=== PATIENT | female | born 1960 | race Caucasian/White ===

== ENCOUNTER 2021-06-30 15:11 | Outpatient (REF) | payer BC, SELFPAY ==
[2021-06-30 15:32] LABS: MANUAL DIFF FLAG NO
[2021-06-30 15:42] LABS: Basophils Percent Auto 0.6 % (0-2); Eosinophils Absolute Auto 0.1 X10*3/uL (0.0-0.4); Eosinophils Percent Auto 1.8 % (0-4); Hematocrit 37.3 % (37-47); Hemoglobin 12.4 g/dl (12.0-16.0); Imm Gran Abs Auto 0.03 X10*3/uL (0.00-0.03); Imm Gran Pct Auto 0.4 % (0.0-0.4); Lymphocytes Absolute Auto 0.8 X10*3/uL (1.2-4.9); Lymphocytes Percent Auto 11.7 % (20-40); Mean Corpuscular HGB Conc 33.2 g/dl (31.0-35.0); Mean Corpuscular Hemoglobin 30.2 pg (27.0-33.0); Mean Corpuscular Volume 90.8 fL (80-98); Mean Platelet Volume 9.3 fL (9.4-12.3); Monocytes Absolute Auto 0.6 X10*3/uL (0.1-1.2); Monocytes Percent Auto 7.7 % (2-11); Neutrophils Absolute Auto 5.6 X10*3/uL (2.0-8.3); Neutrophils Percent Auto 77.8 % (45-73); Platelet Count 197 X10*3/uL (160-400); Red Blood Count 4.11 X10*6/uL (4.20-5.50); Red Cell Distribution Width 12.3 % (11.0-16.0); White Blood Count 7.2 X10*3/uL (4.8-10.8)
[2021-06-30 16:03] LABS: Alanine Aminotransferase 23 U/L (0-31); Albumin Level 4.2 g/dL (3.5-5.0); Alkaline Phosphatase 56 U/L (39-117); Anion Gap 11 (12-20); Aspartate Amino Transferase 33 U/L (5-31); Bilirubin Direct 0.2 mg/dL (0.0-0.5); Bilirubin Total 0.5 mg/dL (0.0-1.0); Blood Urea Nitrogen 10 mg/dL (9-16); C Reactive Protein 0.21 mg/dL (< or = 0.50); Calcium 9.6 mg/dL (8.4-10.2); Carbon Dioxide 29 mmol/L (22-29); Chloride 106 mmol/L (96-108); Estimated Glomerular Filt Rate > 60; Glucose Random 110 mg/dL (60-115); Potassium 3.9 mmol/L (3.3-5.1); Sodium 142 mmol/L (135-145)
[2021-06-30 16:23] LABS: Erythrocyte Sedimentation Rate 16 MM/HR (0-20)
== END 2021-06-30 15:12 | disposition home or self-care (01) ==
LOC: HO.LAB 15:11
PROVIDERS: PCP Internal Medicine; Visit Provider Internal Medicine
DX: R19.7 Diarrhea, unspecified (principal); R53.83 Other fatigue
CPT/HCPCS: 36415; 80048; 80076; 85025; 85652; 86140

== ENCOUNTER 2021-07-01 14:19 | Outpatient (REF) | payer BC, SELFPAY ==
[2021-07-01 15:00] LABS: Leukocytes Stool Qualitative NEGATIVE (NEGATIVE)
[2021-07-01 15:38] LABS: CDiff Gene PCR NEGATIVE (Negative)
== END 2021-07-01 14:20 | disposition home or self-care (01) ==
LOC: HO.LNP 14:19
PROVIDERS: Visit Provider Internal Medicine
DX: R19.7 Diarrhea, unspecified (principal); R53.83 Other fatigue
CPT/HCPCS: 87045; 87046; 87177; 87209; 87329; 87493; 89055

== ENCOUNTER 2021-11-10 15:54 | Outpatient (REF) | payer BC, SELFPAY ==
[2021-11-10 16:02] LABS: MANUAL DIFF FLAG NO
[2021-11-10 16:33] LABS: Basophils Percent Auto 0.6 % (0-2); Eosinophils Absolute Auto 0.1 X10*3/uL (0.0-0.4); Eosinophils Percent Auto 1.3 % (0-4); Hemoglobin 11.7 g/dl (12.0-16.0); Imm Gran Abs Auto 0.01 X10*3/uL (0.00-0.03); Imm Gran Pct Auto 0.2 % (0.0-0.4); Lymphocytes Percent Auto 17.8 % (20-40); Mean Corpuscular HGB Conc 32.5 g/dl (31.0-35.0); Mean Corpuscular Hemoglobin 30.7 pg (27.0-33.0); Mean Corpuscular Volume 94.5 fL (80.0-98.0); Mean Platelet Volume 9.6 fL (9.4-12.3); Monocytes Absolute Auto 0.4 X10*3/uL (0.1-1.2); Monocytes Percent Auto 7.2 % (2-11); Neutrophils Percent Auto 72.9 % (45-73); Platelet Count 180 X10*3/uL (160-400); Red Blood Count 3.81 X10*6/uL (4.20-5.50); Red Cell Distribution Width 12.4 % (11.0-16.0); White Blood Count 5.5 X10*3/uL (4.8-10.8)
[2021-11-10 16:45] LABS: Alanine Aminotransferase 28 U/L (0-31); Albumin Level 4.5 g/dL (3.5-5.0); Alkaline Phosphatase 58 U/L (39-117); Aspartate Amino Transferase 52 U/L (5-31); Bilirubin Direct 0.2 mg/dL (0.0-0.5); Bilirubin Total 0.6 mg/dL (0.0-1.0); C Reactive Protein 0.06 mg/dL (< or = 0.50); Total Protein 7.3 g/dL (6.5-8.0)
[2021-11-10 17:05] LABS: Erythrocyte Sedimentation Rate 8 MM/HR (0-20)
[2021-11-16 12:22] LABS: Antibody to SS-A Antigen <1.0 NEG AI (<1.0 NEG); Antibody to SS-B Antigen <1.0 NEG AI (<1.0 NEG)
== END 2021-11-10 15:55 | disposition home or self-care (01) ==
LOC: HO.LAB 15:54
PROVIDERS: Visit Provider Internal Medicine
DX: K50.10 Crohn's disease of large intestine without complications (principal); H04.123 Dry eye syndrome of bilateral lacrimal glands
CPT/HCPCS: 36415; 80076; 85025; 85652; 86140; 86235

== ENCOUNTER 2021-12-14 08:33 | Day surgery (SDC) | payer BC, SELFPAY ==
--- NOTE | 2021-12-13 09:00 | P.CONAN_ITS ---
Documented by User: Molly Mcdaniel NP 12/13/21 09:01 HPI - Anesthesia Eval Consult details Narrative: 61yo F for Upper Endoscopy and Colonoscopy PMFSH Past Medical History Medical History Bronchiectasis Crohn's colitis GERD (gastroesophageal reflux disease) History of Mohs micrographic surgery for skin cancer History of Sjogren's disease History of skin cancer Hypothyroidism Osteoporosis Surgical History Surgical History History of esophagogastroduodenoscopy (EGD) History of left oophorectomy Hx of colonoscopy Hx of cystoscopy Hx of foot surgery Hx of right knee surgery Social History Social History Patient Tobacco Use Status: Never used Tobacco Use of substances other than those prescribed or required for medical reasons: Yes Substance Use Frequency: Daily Are you DNR?: No Advance Directives: No Advance Directives Information Provided: Yes Meds Allergies Allergy/AdvReac Type Severity Reaction Status Date / Time ciprofloxacin [From CIPRO] Allergy Unknown NEUROPATHY Verified 12/14/21 09:13 moxifloxacin [From AVELOX] Allergy Unknown NEUROPATHY Verified 12/14/21 09:14 nitrofurantoin Allergy Unknown HIVES Verified 12/14/21 09:13 [From MACROBID] levofloxacin [From Levaquin] Allergy Unknown Verified 12/09/21 09:45 Home Medications Medication Instructions Recorded Confirmed Last Taken Type azithromycin 250 mg tablet mg PO 12/09/21 Unknown History cyanocobalamin (vitamin B-12) 1 ml IM QMONTH 12/09/21 12/09/21 Unknown History 1,000 mcg/mL injection solution fluticasone 500 mcg-salmeterol 50 1 puff PO BID 12/09/21 12/09/21 Unknown History mcg/dose blistr powdr for inhalation (Advair Diskus) folic acid 1 mg tablet 1 tab PO DAILY 12/09/21 12/09/21 Unknown History ipratropium 0.5 mg-albuterol 3 mg 1 vial INHALATION QID 12/09/21 12/09/21 Unk nown History (2.5 mg base)/3 mL nebulization soln levothyroxine 100 mcg tablet 1 tab PO 6XW 12/09/21 12/14/21 12/14/21 06:30 History (Synthroid) lifitegrast 5 % eye drops in a 1 drp OPHTHALMIC (EYE) BID 12/09/21 12/09/21 Unknown History dropperette (Xiidra) omeprazole 20 mg capsule,delayed 1 cap PO QAM 12/09/21 12/09/21 Unknown History release sodium chloride 3 % for ml INHALATION 12/09/21 Unknown History nebulization sulfasalazine 500 mg tablet 3 tab PO BID 12/09/21 12/09/21 Unknown History Exam Exam Date and Time: December 13, 2021 0900 Height,Weight and Vital Signs: Height 5 ft 8.25 in Weight 60.328 kg Pertinent Lab Results Pertinent Lab Results: Laboratory Tests 06/30/21 11/10/21 15:31 16:01 WBC 5.5 Hgb 11.7 L Hct 36.0 L Sodium 142 Potassium 3.9 Chloride 106 Carbon Dioxide 29 BUN 10 Creatinine 0.95 Assessment and Plan Assessment Anesthesia Assessment: Chart Reviewed Documented by User: Tiffany Wolff MD 12/14/21 10:05 [facility] Past Medical History Medical History Bronchiectasis Crohn's colitis GERD (gastroesophageal reflux disease) History of Mohs micrographic surgery for skin cancer History of Sjogren's disease History of skin cancer Hypothyroidism Osteoporosis Surgical History Surgical History History of esophagogastroduodenoscopy (EGD) History of left oophorectomy Hx of colonoscopy Hx of cystoscopy Hx of foot surgery Hx of right knee surgery History of Problems with Anesthesia: Yes (Aspiration twice in the past per pt) Social History Social History Patient Tobacco Use Status: Never used Tobacco Use of substances other than those prescribed or required for medical reasons: Yes Substance Use Frequency: Daily Are you DNR?: No Advance Directives: No Advance Directives Information Provided: Yes Meds Allergies Allergy/AdvReac Type Severity Reaction Status Date / Time ciprofloxacin [From CIPRO] Allergy Unknown NEUROPATHY Verified 12/14/21 09:13 moxifloxacin [From AVELOX] Allergy Unknown NEUROPATHY Verified 12/14/21 09:14 nitrofurantoin Allergy Unknown HIVES Verified 12/14/21 09:13 [From MACROBID] levofloxacin [From Levaquin] Allergy Unknown Verified 12/09/21 09:45 Home Medications Medication Instructions Recorded Confirmed Last Taken Type azithromycin 250 mg tablet mg PO 12/09/21 Unknown History cyanocobalamin (vitamin B-12) 1 ml IM QMONTH 12/09/21 12/09/21 Unknown History 1,000 mcg/mL injection solution fluticasone 500 mcg-salmeterol 50 1 puff PO BID 12/09/21 12/09/21 Unknown History mcg/dose blistr powdr for inhalation (Advair Diskus) folic acid 1 mg tablet 1 tab PO DAILY 12/09/21 12/09/21 Unknown History ipratropium 0.5 mg-albuterol 3 mg 1 vial INHALATION QID 12/09/21 12/09/21 Unknown History (2.5 mg base)/3 mL nebulization soln levothyroxine 100 mcg tablet 1 tab PO 6XW 12/09/21 12/14/21 12/14/21 06:30 History (Synthroid) lifitegrast 5 % eye drops in a 1 drp OPHTHALMIC (EYE) BID 12/09/21 12/09/21 Unknown History dropperette (Xiidra) omeprazole 20 mg capsule,delayed 1 cap PO QAM 12/09/21 12/09/21 Unknown History release sodium chloride 3 % for ml INHALATION 12/09/21 Unknown History nebulization sulfasalazine 500 mg tablet 3 tab PO BID 12/09/21 12/09/21 Unknown History Exam Airway Mallampati Class: II TM Dist: >3cm Neck ROM: Full Loose/Missing/Broken Teeth: No Heart: RRR Lungs: CTA Assessment and Plan Assessment Anesthesia Assessment: Anesthesia Plan Discussed Final Anesthetic Review History of Problems with Anesthesia: Yes (Aspiration twice in the past per pt) NPO: Yes ASA Class: II Final Preanesthetic Review: Meds/Allgs Chart Reviewed, Consent Obtained/Reviewed and Anes Risks/Benef Reviewed Patient Risk: Low Procedure Risk: Intermediate Anesthetic Plan Anesthetic Plan: GA Disposition: Standard PACU
[2021-12-14] VITALS (7 sets, daily range): BP systolic 125–158; BP diastolic 72–81; PULSE 51–74; RESP 12–16; TEMP 36.1–37.1; O2SAT 95–99; BMI 19.4
[2021-12-14] MEDS: Lactated Ringers 1,000 ML 100 ML IVCONT (09:15)
--- NOTE | 2021-12-14 11:04 | PM.OP ---
Brief Operative Note Date of Service: 12/14/21 Pre-op diagnosis: GERD, Crohn's disease Post-op diagnosis: other (Hiatal hernia, R/O Dysplasia) Procedure: EGD with biopsies, Colonoscopy to the cecum and TI with biopsies Surgeon: Jay Connelly Anesthesia: MAC Was an Watershed Tender used for this Procedure?: No Estimated blood loss (mL): 2.0 Pathology: other (A. EG Junction at 38cm B. Ascending colon C. Transverse colon D. Descending colon E. Sigmoid colon F. Rectum) Condition: stable Disposition: PACU
--- NOTE | 2021-12-14 12:54 | OP_ITS ---
SURGEON: Jay Connelly MD INDICATIONS: The patient presents for evaluation of gastroesophageal reflux, history of Crohn's colitis, and family history of colon cancer. Full consent was obtained from her for this, including risks of bleeding and perforation. PREOPERATIVE DIAGNOSIS: POSTOPERATIVE DIAGNOSIS: PROCEDURE PERFORMED: Esophagogastroduodenoscopy with biopsies and colonoscopy to the cecum and terminal ileum with biopsies. ESTIMATED BLOOD LOSS: COMPLICATIONS: ANESTHESIA: General anesthesia due to her increased risk of aspiration. ASSISTANTS: SPECIMENS: PREOPERATIVE DIAGNOSES: Gastroesophageal reflux, history of Crohn's colitis, and family history of colon cancer. POSTOPERATIVE DIAGNOSES: Gastroesophageal reflux, history of Crohn's colitis, family history of colon cancer, small hiatal hernia, gastroesophageal reflux, rule out colonic dysplasia, mild diverticulosis, internal and external hemorrhoids. DESCRIPTION OF PROCEDURE: The patient was kept in the supine position. The Olympus video gastroscope was passed in the posterior oropharynx and upper esophagus under direct vision. The scope was passed slowly to the distal esophagus. The gastroesophageal junction appeared at 38 cm. This area was notable for some edema, friability, and erythema. There were no erosions nor ulceration. There was some slight irregularity at the EG junction, but no definitive evidence of Osorio's mucosa. The scope entered into the stomach. There was a small hiatal hernia. The scope was advanced to the pylorus and the duodenum was cannulated to the descending portion. The duodenum including the bulb appeared normal without mass or ulceration. The scope was withdrawn back into the stomach. The gastric antrum and body appeared normal with good peristalsis. The scope was retroflexed visualizing the proximal stomach carefully, which appeared normal, without any sign of mass or ulceration. The scope was straightened. Of note, there was a tiny bit of coffee-grounds material in the proximal stomach. The scope was withdrawn back in the esophagus. Multiple biopsies were obtained at the EG junction at 38 cm. Proximal to that the esophageal mucosa appeared normal. The scope was withdrawn from the patient. She was turned around for colonoscopy. The patient was placed in the left lateral decubitus position. The digital rectal exam revealed external hemorrhoids. The Olympus video pediatric colonoscope was entered into the rectum and advanced easily to the cecum. Once in the cecum, I did identify normal-appearing cecal pouch with appendiceal orifice and a normal-appearing ileocecal valve. The terminal ileum was cannulated and appeared normal. There was no sign of any Crohn's disease or active inflammation in the ileum. The scope was withdrawn back into the colon. The entire cecum and ileocecal valve appeared normal. The scope was slowly withdrawn assessing all mucosal surfaces carefully. Preparation was excellent. I did not visualize any sign of colitis, polyps, nor angiodysplasia. There was a mild amount of sigmoid diverticulosis. Random biopsies were obtained in the ascending colon, transverse colon, descending colon, sigmoid colon, and rectum. In the rectum, the scope was retroflexed visualizing some small internal hemorrhoids, but no other pathology. The rectal mucosa appeared normal. The scope was straightened and withdrawn from the patient. She tolerated both procedures well and was returned to recovery area in stable condition. IMPRESSION: 1. Small hiatal hernia, gastroesophageal reflux, rule out Osorio's esophagus. 2. History of Crohn's disease, rule out dysplasia. 3. Mild diverticulosis. 4. Internal and external hemorrhoids. PLAN: The results of the biopsies will be checked. Assuming there is no dysplasia in the colon biopsies, I would recommend a repeat colonoscopy in 5 years. Given her ongoing symptoms of reflux and today's findings, I shall increase the omeprazole to 40 mg daily. She will continue her sulfasalazine and folic acid as well for the colitis. She will see me in the fall for a followup visit, but will call sooner as needed. She was advised to avoid all aspirin and NSAIDs for least 1 week, but long-term if possible given the underlying inflammatory bowel disease. This has been discussed with her . MD ZAHRA Maya/ASHA / [id number] MTDD
== END 2021-12-14 12:32 | disposition home or self-care (01) ==
PROVIDERS: Visit Provider Internal Medicine
PROC: (CPT 45380; principal; 2021-12-14 09:30)
DX: K50.10 Crohn's disease of large intestine without complications (principal); Z80.0 Family history of malignant neoplasm of digestive organs; K57.30 Diverticulosis of large intestine without perforation or abscess without bleeding; K64.8 Other hemorrhoids; K64.4 Residual hemorrhoidal skin tags; K21.9 Gastro-esophageal reflux disease without esophagitis; J47.9 Bronchiectasis, uncomplicated; K44.9 Diaphragmatic hernia without obstruction or gangrene; E03.9 Hypothyroidism, unspecified; M35.00 Sjogren syndrome, unspecified; M81.0 Age-related osteoporosis without current pathological fracture; Z79.51 Long term (current) use of inhaled steroids; Z79.899 Other long term (current) drug therapy; Z88.1 Allergy status to other antibiotic agents; Z85.820 Personal history of malignant melanoma of skin; Z91.89 Other specified personal risk factors, not elsewhere classified; Z85.828 Personal history of other malignant neoplasm of skin; Z98.890 Other specified postprocedural states
CPT/HCPCS: 45380; 43239; 88305; J1100; J2250; J2405; J3010